=== PATIENT | female | born 2000 | race African-American/Black ===

== ENCOUNTER 2018-07-05 20:03 | Emergency (ER) | payer MEDICAID ==
[~2018-07-05] VITALS: Ht 162.6 cm; Wt 65.0 kg
[2018-07-05 21:08] VITALS: BP 96/57
== END 2018-07-05 23:00 | disposition left against medical advice (07) ==
LOC: ER 20:03
DX: H92.01 Otalgia, right ear (principal); Z53.21 Procedure and treatment not carried out due to patient leaving prior to being seen by health care provider